=== PATIENT | male | born 1945 | race Caucasian/White ===

== ENCOUNTER 2016-10-28 21:02 | Emergency (ER) | payer OTHER, MEDICARE ==
[2016-10-28] MEDS ORDERED: IPRATROPIUM/ALBUTEROL 0.5-2.5 MG/3 ML AMPUL NEB ONE (21:12)
[2016-10-28] MEDS ORDERED: ALBUTEROL SULFATE 0.083% NEB 2.5 MG/3 ML AMPUL NEB ONE (21:12)
[2016-10-28] MEDS ORDERED: MAGNESIUM SULFATE/D5W 1 GM/100 ML RTUPB IV ONE ×2 (21:12)
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
[2016-10-28 23:23] LABS: HEMATOCRIT 40.3 % (37.9-51.0); HEMOGLOBIN 12.9 g/dL (13.5-17.0); HGB HCT DIFFERENCE -1.6; MEAN CORPUSCULAR HEMOGLOBIN 29.4 pg (27.0-33.4); MEAN CORPUSCULAR VOLUME 92 fl (80-97); RED BLOOD COUNT 4.39 10^6/uL (4.35-5.55); RED CELL DISTRIBUTION WIDTH 12.7 % (11.5-14.0); WHITE BLOOD COUNT 15.7 10^3/uL (4.0-10.5)
[2016-10-28 23:39] LABS: ALANINE AMINOTRANSFERASE 33 U/L (21-72); ALBUMIN 4.6 g/dL (3.5-5.0); ALKALINE PHOSPHATASE 85 U/L (38-126); ANION GAP 14 (5-19); ASPARTATE AMINO TRANSFERASE 31 U/L (17-59); BILIRUBIN,TOTAL 1.1 mg/dL (0.2-1.3); BLOOD UREA NITROGEN 18 mg/dL (7-20); CALCIUM 9.2 mg/dL (8.4-10.2); CARBON DIOXIDE 24 mmol/L (22-30); CHLORIDE 99 mmol/L (98-107); CREATINE KINASE 294 U/L (55-170); CREATININE RESULT 1.18 mg/dL (0.52-1.25); GLUCOSE 144 mg/dL (75-110); POTASSIUM 4.3 mmol/L (3.6-5.0); SODIUM 136.9 mmol/L (137-145); TOTAL PROTEIN 7.5 g/dL (6.3-8.2)
[2016-10-28 23:47] LABS: BASOPHILS % (MANUAL) 0 % (0-2); EOSINOPHILS % (MANUAL) 0 % (0-6); LYMPHOCYTES % (MANUAL) 1 % (13-45); TOTAL CELLS COUNTED 100
[2016-10-28 23:48] LABS: RBC MORPHOLOGY COMMENT NORMO-CYTIC/CHROMIC
[2016-10-28 23:50] LABS: CREATINE KINASE MB 3.21 ng/mL (<4.55)
[2016-10-29 00:11] LABS: TROPONIN I 0.084 ng/mL
[2016-10-29 01:19] VITALS: BP 120/77
[2016-10-29] MEDS ORDERED: AZITHROMYCIN 250 MG TABLET PO ONE (01:22)
--- NOTE | 2016-10-29 08:21 | EKG REPORT ---
SEVERITY:- ABNORMAL ECG - SINUS RHYTHM : Confirmed by: Jovanni Gann MD 29-Oct-2016 08:20:49
== END 2016-10-29 01:25 | disposition home or self-care (01) ==
LOC: ER 21:02
DX: J44.1 Chronic obstructive pulmonary disease with (acute) exacerbation (principal); I10 Essential (primary) hypertension; I49.3 Ventricular premature depolarization; D72.829 Elevated white blood cell count, unspecified; R05 Cough; R06.02 Shortness of breath; R00.0 Tachycardia, unspecified; Z77.110 Contact with and (suspected) exposure to air pollution; Z87.891 Personal history of nicotine dependence
CPT/HCPCS: 93005; 94640 ×2; 99285; 96365; 36415; 82553; 82550; 85025; 80053; 84484; 71010; 93010; J3475; J7620

== ENCOUNTER 2016-11-05 14:09 | Emergency (ER) | payer OTHER, MEDICARE ==
--- NOTE | 2016-11-05 14:54 | ER Document Report ---
ED Medical Screen (RME) - General Stated Complaint: COUGH Notes: 71 yo male c/o cough, pain to left chest wall. hurts to breathe. no fever. + hx/o COPD seen ED last week for bronchitits - Related Data Allergies/Adverse Reactions: No Known Allergies Allergy (Unverified 05/15/14 19:52) Past Medical History Pulmonary Medical History: Reports: Hx COPD
[2016-11-05 15:29] LABS: ABSOLUTE BASOPHILS # (AUTO) 0.1 10^3/uL (0.0-0.2); ABSOLUTE EOSINOPHILS # (AUTO) 0.2 10^3/uL (0.0-0.6); ABSOLUTE LYMPHOCYTES (AUTO) 1.6 10^3/uL (0.5-4.7); ABSOLUTE MONOCYTES (AUTO) 1.2 10^3/uL (0.1-1.4); ABSOLUTE NEUT (AUTO) 10.7 10^3/uL (1.7-8.2); BASOPHILS % (AUTO) 0.5 % (0-2); EOSINOPHILS % (AUTO) 1.2 % (0-6); HEMOGLOBIN 13.4 g/dL (13.5-17.0); HGB HCT DIFFERENCE -0.8; LYMPHOCYTES % (AUTO) 11.7 % (13-45); MEAN CORPUSCULAR HEMOGLOBIN 29.8 pg (27.0-33.4); MEAN CORPUSCULAR HGB CONC 32.6 g/dL (32.0-36.0); MEAN CORPUSCULAR VOLUME 92 fl (80-97); MONOCYTES % (AUTO) 8.8 % (3-13); RED BLOOD COUNT 4.48 10^6/uL (4.35-5.55); RED CELL DISTRIBUTION WIDTH 12.8 % (11.5-14.0); SEGMENTED NEUTROPHILS % (AUTO) 77.8 % (42-78); WHITE BLOOD COUNT 13.8 10^3/uL (4.0-10.5)
[2016-11-05 15:34] LABS: ALANINE AMINOTRANSFERASE 33 U/L (21-72); ALBUMIN 3.5 g/dL (3.5-5.0); ALKALINE PHOSPHATASE 75 U/L (38-126); ANION GAP 14 (5-19); ASPARTATE AMINO TRANSFERASE 17 U/L (17-59); BILIRUBIN,TOTAL 0.7 mg/dL (0.2-1.3); BLOOD UREA NITROGEN 22 mg/dL (7-20); CALCIUM 8.9 mg/dL (8.4-10.2); CARBON DIOXIDE 26 mmol/L (22-30); CHLORIDE 96 mmol/L (98-107); CREATININE RESULT 1.27 mg/dL (0.52-1.25); GLUCOSE 90 mg/dL (75-110); POTASSIUM 4.1 mmol/L (3.6-5.0); SODIUM 135.5 mmol/L (137-145); TOTAL PROTEIN 6.6 g/dL (6.3-8.2)
--- NOTE | 2016-11-05 18:33 | ER Document Report ---
ED General - General Mode of Arrival: Ambulatory Information source: Patient TRAVEL OUTSIDE OF THE [place] IN LAST 30 DAYS: No - HPI Onset: Other - 3 days ago Associated symptoms: Other - see above <CLOTILDE SAAVEDRA - Last Filed: 11/05/16 21:47> <JAIMEALESSANDRO ANN - Last Filed: 11/11/16 02:05> - General Chief Complaint: Cough Stated Complaint: COUGH Notes: 71 year old male with history of COPD and hypertension presents to the ED complaining of constant left abdominal pain that started 3 days ago. Patient states that the pain is not exacerbated with movement and denies shortness of breath or dysuria. Patient denies coughing more than usual secondary to his COPD. Patient was in the ED 8 nights ago and was diagnosed with bronchitis and prescribed antibiotics which the patient has completed. Patient went to the [place] earlier today complaining of the abdominal pain and was advised to come to the ED. Patient states that he is prescribed Tramadol from the [place] and states that it helps with the pain. (CLOTILDE SAAVEDRA) - Related Data Allergies/Adverse Reactions: No Known Allergies Allergy (Verified 11/05/16 14:52) Past Medical History - General Information source: Patient - Social History Smoking Status: Never Smoker Chew tobacco use (# tins/day): No Frequency of alcohol use: None Drug Abuse: None Family History: Reviewed & Not Pertinent Patient has suicidal ideation: No Patient has homicidal ideation: No Pulmonary Medical History: Reports: Hx COPD Past Surgical History: Reports: Hx Kidney (Renal Surgery) - Right renal CA <CLOTILDE SAAVEDRA - Last Filed: 11/05/16 21:47> Review of Systems - Review of Systems Constitutional: See HPI, Recent illness - bronchitis 8 days ago EENT: No symptoms reported Cardiovascular: No symptoms reported Respiratory: No symptoms reported. denies: Short of breath Gastrointestinal: See HPI, Abdominal pain - left side Genitourinary: No symptoms reported. denies: Dysuria Male Genitourinary: No symptoms reported Musculoskeletal: No symptoms reported Skin: No symptoms reported Hematologic/Lymphatic: No symptoms reported Neurological/Psychological: No symptoms reported <CLOTILDE SAAVEDRA - Last Filed: 11/05/16 21:47> Physical Exam - Vital signs Interpretation: Normal - General General appearance: Alert In distress: None - HEENT Head: Normocephalic, Atraumatic Eyes: Normal Extraocular movements intact: Yes Pupils: PERRL - Respiratory Respiratory status: No respiratory distress Chest status: Tender Breath sounds: Normal Chest palpation: Tender - left lateral chest wall tenderness to palpation - Cardiovascular Rhythm: Regular Heart sounds: Normal auscultation - Abdominal Inspection: Normal - Back Back: Normal - Extremities General upper extremity: Normal inspection, Normal ROM General lower extremity: Normal inspection, Normal ROM - Neurological Neuro grossly intact: Yes Cognition: Normal Orientation: AAOx4 Molly Coma Scale Eye Opening: Spontaneous Lyons Coma Scale Verbal: Oriented Molly Coma Scale Motor: Obeys Commands Molly Coma Scale Total: 15 Speech: Normal - Psychological Associated symptoms: Normal affect, Normal mood - Skin Skin Temperature: Warm Skin Moisture: Dry Skin Color: Normal <CLOTILDE SAAVEDRA - Last Filed: 11/05/16 21:47> <ALESSANDRO SANDOVAL - Last Filed: 11/11/16 02:05> - Vital signs Vitals: Temp Pulse Resp BP Pulse Ox 97.6 F 84 18 122/79 98 11/05/16 14:49 11/05/16 14:49 11/05/16 14:49 11/05/16 14:49 11/05/16 14:49 Course - Laboratory Result Diagrams: 11/05/16 15:00 11/05/16 15:00 <CLOTILDE SAAVEDRA - Last Filed: 11/05/16 21:47> - Laboratory Result Diagrams: 11/05/16 15:00 11/05/16 15:00 <ALESSANDRO SANDOVAL - Last Filed: 11/11/16 02:05> - Re-evaluation Re-evalutation: Patient with no acute finding on blood work or imaging. Patient feels better after pain medication. States that he will take tramadol at home for pain. Stable for discharge. Follow-up with PMD. Return if any worsening or concerning symptoms. Stable for discharge home. (ALESSANDRO SANDOVAL) - Vital Signs Vital signs: Temp Pulse Resp BP Pulse Ox 98.5 F 89 18 144/77 H 97 11/05/16 20:28 11/05/16 20:28 11/05/16 14:49 11/05/16 20:28 11/05/16 20:28 - Laboratory Laboratory results interpreted by me: 11/05/16 11/05/16 15:00 15:00 WBC 13.8 H Hgb 13.4 L Lymphocytes % 11.7 L Absolute Neutrophils 10.7 H Sodium 135.5 L Chloride 96 L BUN 22 H Creatinine 1.27 H Est GFR (Non-Af Amer) 56 L (CLOTILDE SAAVEDRA) (ALESSANDRO SANDOVAL) Discharge <CLOTILDE SAAVEDRA - Last Filed: 11/05/16 21:47> <ALESSANDRO SANDOVAL - Last Filed: 11/11/16 02:05> - Discharge Clinical Impression: Chest wall pain Condition: Stable Disposition: HOME, SELF-CARE Instructions: Chest Wall Pain ([facility]) Additional Instructions: Please take tramadol as needed for pain. Referrals: SCOTT COLON MD [Primary Care Provider] - Follow up tomorrow Scribe Attestation: 11/11/16 02:05 I personally performed the services described in the documentation, reviewed and edited the documentation which was dictated to the scribe in my presence, and it accurately records my words and actions. (ALESSANDRO SANDOVAL) Scribe Documentation - Scribe Written by Lavon:: Lavon Barnes, 11/05/2016 19:08 acting as scribe for :: Jaime <CLOTILDE SAAVEDRA - Last Filed: 11/05/16 21:47>
[2016-11-05 20:33] VITALS: BP 144/77
== END 2016-11-05 20:33 | disposition home or self-care (01) ==
LOC: ER 14:09
DX: R07.89 Other chest pain (principal); R10.9 Unspecified abdominal pain; J44.9 Chronic obstructive pulmonary disease, unspecified; R05 Cough
CPT/HCPCS: 36415; 71020; 80053; 84484; 85025; 99283

== ENCOUNTER → 2020-03-27 | Outpatient (CLI) | payer MEDICARE, OTHER | LOC: OD 12:02 | PROVIDERS: ATTEND Plastic Surgery | DX: C44.42 Squamous cell carcinoma of skin of scalp and neck (principal) | CPT/HCPCS: 88305 ==